=== PATIENT | female | born 1950 | race Caucasian/White ===

== ENCOUNTER → 2023-05-23 12:48 | Outpatient (REF) | payer MEDICARE, OTHER, SELFPAY | LOC: HWWDC 12:48 | PROVIDERS: ATTENDING PHYSICIAN Internal Medicine | DX: Z12.31 Encounter for screening mammogram for malignant neoplasm of breast (principal) | CPT/HCPCS: 77063; 77067 ==

== ENCOUNTER → 2024-05-31 11:12 | Outpatient (REF) | payer MEDICARE, OTHER, SELFPAY | LOC: HWWDC 11:12 | PROVIDERS: ATTENDING PHYSICIAN Internal Medicine | DX: Z12.31 Encounter for screening mammogram for malignant neoplasm of breast (principal) | CPT/HCPCS: 77063; 77067 ==

== ENCOUNTER 2024-11-28 19:33 | Emergency (ER) | payer MEDICARE, OTHER, SELFPAY ==
[2024-11-28 19:41] VITALS: BP 142/89
[2024-11-28 20:13] LABS: Hematocrit 41.1 % (37.0-47.0); Hemoglobin 13.1 g/dL (12.0-16.0); Mean Corp Hgb Conc. 31.9 g/dL (33.0-37.0); Mean Corpuscular Volume 89.3 fL (81.0-99.0); Nucleated Red Blood Cells % 0 %; Platelet Count 232 10^3/uL (130-400); Red Cell Dist. Width 13.9 % (11.5-14.5)
[2024-11-28 20:31] LABS: Blood Urea Nitrogen 21 mg/dl (7-17); Calcium 8.7 mg/dl (8.4-10.2); Carbon Dioxide 25 mmol/L (22-30); Chloride 105 mmol/L (98-107); Glucose 156 mg/dl (70-99); Sodium 138 mmol/L (135-145); eGFR > 60.00
[2024-11-28 20:39] LABS: Lipase 163 U/L (23-300)
[2024-11-28 22:22] VITALS: BMI 30.7
[2024-11-28 22:27] LABS: Urine Character Clear (Clear)
[2024-11-28 22:55] LABS: Urine Squamous Cell >30 /LPF (Few); Urine White Cell 16-20 /HPF (0-5)
--- NOTE | 2024-11-28 23:20 | ED.GENMED ---
History of Present Illness
General
Chief Complaint: Urinary Symptoms
Source: patient and family
Exam Limitations: none
Time Seen by Provider: 11/28/24 22:05
Nursing documentation reviewed up to this point in time: agreed with
History of Present Illness
History of Present Illness:
74-year-old female with a past medical history of hypertension, hyperlipidemia, diabetes, chronic back pain presents to the ER with her daughter for evaluation of abdominal pain. Patient reports symptoms have been ongoing for the past 4 days. She
reports a pressure sensation in her lower abdomen that radiates to the back. She does have some nausea but no vomiting. Denies being constipated or having any diarrhea. Denies fever or chills. She does report some slight increased frequency but
no dysuria or hematuria. She denies similar issues in the past.
Review of Systems
Review of Systems
All Other Systems: ROS reviewed and negative except as documented in HPI and ROS
Constitutional: Denies fever or chills
Respiratory: Denies trouble breathing
Cardiac: Denies chest pain
ABD/GI: Reports abdominal pain and nausea; Denies vomiting, diarrhea or constipated
: Reports frequency; Denies dysuria, flank pain or bleeding
Musculoskeletal: Reports back pain; Denies neck pain
Neurological: Denies dizzy or headache
Phy Exam
Physical Exam
Physical Exam:
General: Awake, alert, oriented x3; no acute distress
Head: Normocephalic, atraumatic
Eyes: Conjunctiva normal, sclera anicteric
Throat: Airway intact, handling secretions
Neck: Trachea midline, supple without meningismus
Lungs: Clear to auscultation bilaterally, no wheezing, rales, rhonchi
Heart: Regular rate and rhythm, no murmurs, gallops, or rubs
Abd: Soft, non distended, mildly tender in the lower abdomen
Back: No CVA tenderness, no reproducible tenderness in the thoracic or lumbar spine
Neuro: Grossly intact
Skin: No rash in the area of concern
Extremities: No edema in extremities, equal pulses in all extremities warm and well-perfused
Scores
Heart Failure Risk
Heart Failure Risk Score: Not Applicable
Heart Score for Chest Pain Patients
STEMI patient?: Not applicable
Withdrawal Assessment of Alcohol
Withdrawal Assessment Completed?: Not applicable
Course
Orders/Labs/Results
Orders:
Orders
11/28/24 19:49
Electrocardiogram (*1) Urgent
Reason for Study: Abdominal Pain
EKG- Treatment ONCE
11/28/24 20:06
Basic Metabolic Panel Urgent
Complete Blood Count/With Diff Urgent
Lipase Urgent
11/28/24 22:12
CT Abd/pelvis W Iv Cont Urgent
Comment:
Reason For Exam: lower abd pain radiating to flank
11/28/24 22:19
Urinalysis Reflex To Culture Urgent
Date Specimen was Collected: 11/28/24
Time Specimen was Collected: 19:49
Urine Microscopic Reflex Cult Urgent
Urine Culture Urgent
YADIRA Source: U
Specimen Description:
Date Specimen was Collected: 11/28/24
Time Specimen was Collected: 19:49
Abnormal Lab Results
11/28/24 11/28/24
20:06 22:19
MCHC 31.9 L g/dL
(33.0-37.0)
BUN 21 H mg/dl
(7-17)
Glucose 156 H mg/dl
(70-99)
Ur Occult Blood Reflex 3+ A
(Negative)
Leukocyte Esterase Rfl 2+ A
(Negative)
Urine RBC 7-10 A /HPF
(0-2)
Urine WBC (Reflex) 16-20 A /HPF
(0-5)
Urine Bacteria (Reflex) Few A
(Negative)
Urine Albumin (Reflex) 1+ A
(Neg - Trace)
11/28/24 20:06
11/28/24 20:06
Vital Signs
Initial and Last Documented VS:
Initial Vital Signs
Temp Pulse Resp BP Pulse Ox
36.6 C 94 16 142/89 98
11/28/24 19:41 11/28/24 19:41 11/28/24 19:41 11/28/24 19:41 11/28/24 19:41
Last Documented Vital Signs
Temp Pulse Resp BP Pulse Ox
36.6 C 81 21 142/89 96
11/28/24 19:41 11/28/24 23:00 11/28/24 23:00 11/28/24 19:41 11/28/24 23:00
MDM/Problems Addressed
Differential Diagnosis Includes:
Wide differential diagnosis includes but not limited to: UTI/pyelonephritis, nephrolithiasis, diverticulitis, constipation, colitis, enteritis, appendicitis
MDM/Problems Addressed:
74-year-old female with history as noted presents to the emergency department for evaluation of lower abdominal discomfort as described above. Vitals and exam as above. Labs were sent off including a CBC and a BMP which showed no clinically
significant abnormalities. Her urinalysis appears contaminated however she does have some increased urinary frequency. CT abdomen showed likely fibroid uterus but no other acute abnormalities. Symptoms could be from UTI versus fibroid. She
follows with Dr. Ashley Galo for [employer] and I urged her to follow-up regarding her fibroid. Will provide a course of antibiotics in case of UTI. Stable for discharge. Patient comfortable with this. All questions answered.
*Radiology
Radiology exam reviewed: radiology read reviewed
*Pulse Oximetry
SaO2: 96
Oxygen Mode of Delivery: Room air
Patient hypoxic: no (96%)
*Critical Care Note
Total Time (30-74mins, 75-104mins- exclusive of procedures): Not Applicable
Data Reviewed
Source: patient and family
ED Attending Note
-
Portions of this chart may have been created with voice recognition software.� Occasional wrong word or��sound alike� substitutions may have occurred due to the inherent limitations of voice recognition software.
Discharge Plan
Departure
Patient Disposition: Home (Routine Discharge)
Date of Disposition: 11/28/24
Time of Disposition: 23:24
Patient with high blood pressure during this ER visit?: Yes
Discharge Problem:
Fibroid, Acute UTI
Instructions: Urinary Tract Infection, Adult (DC)
Prescriptions:
New
cefdinir 300 mg capsule
300 mg PO BID Qty: 14 0RF
Referrals:
Mamta Thomas MD [Family Provider]
Ashley Galo MD [Non-Admitting Privileges, Gynecology] - Call in 1-3 days for appt
Activity Restrictions/Additional Instructions:
Thank you for visiting the Emergency Department at [facility].
1. Please schedule a follow up appointment as directed. Call first thing tomorrow morning to make an appointment.
2. If indicated, please take your medications as instructed and indicated on discharge paperwork.
3. If any of your symptoms do not improve, or persist, or become more severe within 6-12 hours, please return to the emergency department for further care.
4. Please return to the emergency department if you develop a headache, neck pain/stiffness, fever greater than 100.4F, chest pain, shortness of breath, persistent nausea, vomiting, slurred speech, difficulty walking, numbness/tingling, weakness,
signs of infection or any other symptoms that are worrisome to you.
Please call [phone] if you have any questions.
Interventions
Interventions:
*Risk Screen - Suicide Last Done: 11/28/24 19:41
*General Assessment Last Done: 11/28/24 22:32
*Neglect/Abuse Screening Last Done: 11/28/24 19:41
*ED- Fall Risk Assessment Last Done: 11/28/24 22:32
*ED COVID-19 Vaccine History Last Done: 11/28/24 22:32
*ED Influenza Vaccine History Last Done: 11/28/24 22:32
ED-Female Genitourinary Assessment Last Done: 11/28/24 22:35
Discharge Date and Time
Print Language: CHINESE
[2024-11-29] MEDS: OMNICEF 300 MG PO (00:12)
--- NOTE | 2024-11-29 00:28 | EDRN ---
discharge instructions reviewed, no further questions or concerns at this time. pt ambulated without difficulty to waiting room exit.
== END 2024-11-29 00:29 | disposition home or self-care (01) ==
LOC: EMR 19:33
PROVIDERS: Emergency Medicine; EMERGENCY PHYSICIAN Emergency Medicine; FAMILY PHYSICIAN Internal Medicine
DX: D25.9 Leiomyoma of uterus, unspecified (principal); N39.0 Urinary tract infection, site not specified; E11.9 Type 2 diabetes mellitus without complications; I10 Essential (primary) hypertension; E78.5 Hyperlipidemia, unspecified; M54.9 Dorsalgia, unspecified; G89.29 Other chronic pain
CPT/HCPCS: 99284; 74177; 80048; 81003; 81015; 83690; 85025; 87086; 93005; Q9967